=== PATIENT | female | born 1990 | race African-American/Black ===

== ENCOUNTER 2016-04-24 16:46 | Emergency (ER) | payer OTHER ==
[~2016-04-24 16:46] MED LIST: ACET50TA PO; ANUS2.5C2 TOP; COLA100C PO; IBUP-1114 PO; PRE-TAB3 PO; PRENTAB9 PO
[2016-04-24 17:41] LABS: BASO % 0.2 % (0.0-1.0); EOS # 0.1 K/mm3 (0.0-0.50); EOS % 1.2 % (0.0-3.0); LARGE UNSTAINED CELL # 0.1 K/mm3 (0.0-0.4); LARGE UNSTAINED CELL % 0.8 % (0.0-4.0); LYMPH # 1.8 K/mm3 (1.5-6.5); LYMPH % 18.2 % (24.0-44.0); MEAN CORPUSCULAR HEMOGLOBIN 29.3 pg (27.0-33.0); MEAN CORPUSCULAR HGB CONC 32.5 g/dl (32.0-36.5); MEAN CORPUSCULAR VOLUME 90.2 fl (80.0-96.0); MONO # 0.3 K/mm3 (0.0-0.8); MONO % 2.9 % (0.0-5.0); NEUTROPHILS # 7.7 K/mm3 (1.8-7.7); NEUTROPHILS % 76.7 % (36.0-66.0); PLATELET COUNT, AUTOMATED 160 k/mm3 (150-450); RED CELL DISTRIBUTION WIDTH 12.7 % (11.5-14.5)
--- NOTE | 2016-04-24 18:10 | REPUSA ---
Clinical history: hematuria. Findings: The urinary bladder appears unremarkable, but is contracted. No urinary bladder masses are seen. The right kidney measures 10.3 x 4.7 x 4.2 cm. The left kidney measures 9.6 x 5.2 x 6.0 cm. The kidneys demonstrate normal echotexture and echogenicity. There is no evidence of hydronephrosis or n ephrolithiasis. No renal masses are seen. No free fluid is appreciated. Impression: Unremarkable ultrasound examination of the kidneys.
[2016-04-24] MEDS ORDERED: CIPROFLOXACIN 500 MG TAB As Ordered ONE (18:45)
--- NOTE | 2016-04-24 18:51 | EDDOCDS ---
Physician Documentation [facility] Name: Karen Peña Age: 25 yrs Sex: Female : 1990 Arrival Date: 04/24/2016 Time: 16:46 Bed PR Private MD: Jose [facility] [place]; Unknown Pcp Disposition: 04/24/16 18:39 Discharged to Home/Self Care. Impression: Acute cystitis. - Condition is Stable. - Prescriptions for Pyridium 200 mg Oral Tablet - take 1 tablet by ORAL route every 8 hours for 3 days; 9 tablet. Cipro 500 mg Oral Tablet - take 1 tablet by ORAL route every 12 hours; 10 tablet. - Medication Reconciliation, Local Pharmacy Hours form. - Follow up: Emergency Department; When: As soon as possible; Reason: Worsening of conditions. Follow up: Private Physician; When: 2 - 3 days; Reason: Recheck today's complaints. - Problem is new. - Symptoms are unchanged. Historical: - Allergies: no known allergies; - Home Meds: 1. none - PMHx: none; - PSHx: none; - Social history: Smoking status: Patient states was never smoker of tobacco. No barriers to communication noted, The patient speaks fluent Bulgarian, Speaks appropriately for age. - Family history: Not pertinent. - : The pt / caregiver states he / she is not on anticoagulants. Home medication list is obtained from the patient. - Exposure Risk Screening:: None identified. 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 11 in. (180.34 cm) (R); Pain 3/10; 18:48 BP 112 / 74; Pulse 72; Resp 16; Temp 98.3(O); Pulse Ox 100% on R/A; Pain 0/10; sew 16:47 Body Mass Index 26.36 (85.73 kg, 180.34 cm) rs6 MDM: 16:52 UCG by Nursing ordered. srm 16:53 UA Ordered. EDMS 16:53 Urine Culture Ordered. EDMS 16:58 CBC with Diff Ordered. EDMS 17:03 Financial registration complete. [email or web address] 17:03 [facility] Payment Agreement was scanned into [employer] and attached to record. ks16 17:04 US Renal Ordered. EDMS 17:19 UA Reviewed. jk8 18:21 CBC with Diff Reviewed. jk8 18:41 Ciprofloxacin 500 mg PO once ordered. jk8 Administered Medications: 18:49 Drug: Ciprofloxacin 500 mg [ciprofloxacin 500 mg tablet (1 tabs)] Route: PO; srm Signatures: Dispatcher [employer] EDMS Claudine Granger, RN RN srm Lucretia Joshua RN RN kr3 Edson Macedo, PAJonathan PA-Wiliam jk8 Tanya Sage, Reg Reg ks16 The chart was reviewed and I authenticate all verbal orders and agree with the evaluation and treatment provided.Corrections: (The following items were deleted from the chart) 17:05 16:58 RENAL US+US ordered. EDMS EDMS 17:19 17:19 APPEARANCE, URINE CLOUDY; PROTEIN, URINE AUTO 2+; LEUKOCYTE ESTERASE, URINE AUTO jk8 3+; BLOOD, URINE BLOOD 2+; WBC, URINE AUTO TNTC; BACTERIA, URINE AUTO 1+; NITRITE, URINE AUTO POSITIVE. jk8 Attachments: 17:03 [facility] [place] [facility] [place] [email or web address] MTDD
--- NOTE | 2016-04-24 18:51 | EDDOCDS ---
Nurse's Notes [facility] Name: Karen Peña Age: 25 yrs Sex: Female : 1990 Arrival Date: 04/24/2016 Time: 16:46 Bed PR2 / Private MD: Jose Wiliam; Unknown Pcp Diagnosis: Acute cystitis Presentation: 04/24 16:49 Presenting complaint: Patient states: blood in urine and pain in my side. lower. blood srm in urine for 3 days. pain started today. Adult Sepsis Screening: The patient does not have new or worsening altered mentation. Patient's respiratory rate is less than 22. Systolic blood pressure is greater than 100. Patient has a qSOFA score of 0- Negative Sepsis Screen. Suicide/Homicide risk assessment- the patient denies having any suicidal and/or homicidal ideations and does not present with any other emotional, behavioral or mental health complaints. Status: The patient is an active duty nutrition services worker. Transition of care: patient was not received from another setting of care. 16:49 Acuity: SCOTTY Level 4 srm 16:49 Method Of Arrival: Walkin/Carried/Asstd srm Triage Assessment: 16:50 General: Appears in no apparent distress, Behavior is appropriate for age, cooperative. srm Pain: Pain currently is 3 out of 10 on a pain scale. HIV screening NA for this visit Offered previously. 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 none - PMHx: none; - PSHx: none; - Social history: Smoking status: Patient states was never smoker of tobacco. No barriers to communication noted, The patient speaks fluent Kyrgyz, Speaks appropriately for age. - Family history: Not pertinent. - : The pt / caregiver states he / she is not on anticoagulants. Home medication list is obtained from the patient. - Exposure Risk Screening:: None identified. Screenin:27 Screening information is obtained from the patient. Fall risk: No risks identified. kr3 Assistance ADL's: requires no assistance with activities of daily living. Abuse/DV Screen: The patient / caregiver reports he/she is: not in a situation that causes fear, pain or injury. Nutritional screening: No deficits noted. Advance Directives: Currently, there is no health care proxy. home support is adequate. Assessment: 17:26 Reassessment: Patient appears in no apparent distress at this time. Neurological: No kr3 deficits noted. Respiratory: Respiratory effort is even, unlabored. Derm: Skin is normal. 18:49 Reassessment: Patient appears in no apparent distress at this time. General: Appears in srm no apparent distress, Behavior is appropriate for age, cooperative. Neurological: No deficits noted. EENT: No deficits noted. Cardiovascular: No deficits noted. GI: No deficits noted. : Reports hematuria. Vital Signs: 16:47 BP 121 / 68 RA Sitting (auto/lg); Pulse 76; Resp 18; Temp 99.3(O); Pulse Ox 99% on R/A; rs6 Weight 85.73 kg (R); Height 5 ft. 11 in. (180.34 cm) (R); Pain 3/10; 18:48 BP 112 / 74; Pulse 72; Resp 16; Temp 98.3(O); Pulse Ox 100% on R/A; Pain 0/10; sew 16:47 Body Mass Index 26.36 (85.73 kg, 180.34 cm) rs Vitals: 16:47 Log In Time: April 24, 2016 at 16:47. rs6 ED Course: 16:47 Patient visited by Scarlet Estrada PCA. rs6 16:47 Jose [facility] [place] Private Physician. rs6 16:47 Unknown Pcp is Private Physician. rs6 16:47 Patient moved to Waiting rs6 16:48 Patient visited by Scarlet Estrada PCA. rs6 16:48 Patient moved to Pre RCE rs6 16:50 Triage Initiated srm 16:51 Patient moved to Triage 2 srm 16:54 Patient visited by Edson Macedo PA-C. jk8 16:56 Edson Macedo PA-C is PHCP. jk8 16:56 Johana Levine MD is Attending Physician. jk8 16:56 Patient visited by Edson Macedo PA-C. jk8 16:56 Urine Culture Sent. srm 16:56 UA Sent. srm 17:03 [facility] Payment Agreement was scanned into [employer] and attached to record. ks16 17:08 Patient moved to Ultrasound am17 17:09 Patient moved to PD2 / 27 kr3 17:09 Patient moved to Ultrasound kr3 17:17 Patient moved to PD2 am17 17:26 Patient moved to TR2 kr3 17:26 CBC with Diff Sent. kr3 17:27 The patient / caregiver is instructed regarding the plan of care and ED course. Patient jenny3 has correct armband on for positive identification. 18:13 Patient visited by Lucretia Joshua RN. kr3 18:40 US Renal Returned. EDMS 18:44 Patient moved to PR kr3 18:48 Patient visited by Johana Batres. sew 18:49 No IV's were initiated during this patient's visit. No procedures done that require srm assistance. 18:50 Patient visited by Claudine Granger, EBENEZER. srm Administered Medications: 18:49 Drug: Ciprofloxacin 500 mg [ciprofloxacin 500 mg tablet (1 tabs)] Route: PO; srm Order Results: Lab Order: UA; SPEC'M 04/24/16 16:54 Test: APPEARANCE, URINE; Value: CLOUDY; Range: CLEAR; Abnormal: Above high normal; Status: F Test: COLOR, URINE; Value: YELLOW; Range: YELLOW; Status: F Test: PH,URINE; Value: 5.0; Range: 5.0-9.0; Units: UNITS; Status: F Test: SPECIFIC GRAVITY URINE AUTO; Value: 1.021; Range: 1.002-1.035; Status: F Test: PROTEIN, URINE AUTO; Value: 2+; Range: NEGATIVE; Abnormal: Above high normal; Units: mg/dL; Status: F Test: GLUCOSE, URINE (UA) AUTO; Value: NEGATIVE; Range: NEGATIVE; Units: mg/dL; Status: F Test: KETONE, URINE AUTO; Value: NEGATIVE; Range: NEGATIVE; Units: mg/dL; Status: F Test: UROBILINOGEN, URINE AUTO; Value: 0.2; Range: 0.0-2.0; Units: mg/dL; Status: F Test: BILIRUBIN, URINE AUTO; Value: NEGATIVE; Range: NEGATIVE; Status: F Test: NITRITE, URINE AUTO; Value: POSITIVE; Range: NEGATIVE; Status: F Test: LEUKOCYTE ESTERASE, URINE AUTO; Value: 3+; Range: NEGATIVE; Abnormal: Above high normal; Status: F Test: BLOOD, URINE BLOOD; Value: 2+; Range: NEGATIVE; Abnormal: Above high normal; Status: F Test: WBC, URINE AUTO; Value: TNTC; Range: 0-3; Abnormal: Above high normal; Units: /HPF; Status: F Test: RBC, URINE AUTO; Value: 0; Range: 0-3; Units: /HPF; Status: F Test: BACTERIA, URINE AUTO; Value: 1+; Range: NEGATIVE; Abnormal: Above high normal; Status: F Test: SQUAMOUS EPITHELIAL CELL UR AU; Value: 0; Range: 0-6; Units: /HPF; Status: F Test: TRANSITIONAL EPITHELIAL AUTO; Value: 1; Range: NONE; Units: /HPF; Status: F Test: MUCUS, URINE; Value: SMALL; Range: NEGATIVE; Status: F Test: HYALINE CAST, URINE AUTO; Value: 0; Range: 0-1; Units: /LPF; Status: F Lab Order: CBC with Diff; SPEC'M 04/24/16 17:24 Test: WHITE BLOOD COUNT; Value: 10.0; Range: 4.0-10.0; Units: K/mm3; Status: F Test: RED BLOOD COUNT; Value: 4.44; Range: 4.00-5.40; Units: M/mm3; Status: F Test: HEMOGLOBIN; Value: 13.0; Range: 12.0-16.0; Units: g/dl; Status: F Test: HEMATOCRIT; Value: 40.0; Range: 36.0-47.0; Units: %; Status: F Test: MEAN CORPUSCULAR VOLUME; Value: 90.2; Range: 80.0-96.0; Units: fl; Status: F Test: MEAN CORPUSCULAR HEMOGLOBIN; Value: 29.3; Range: 27.0-33.0; Units: pg; Status: F Test: MEAN CORPUSCULAR HGB CONC; Value: 32.5; Range: 32.0-36.5; Units: g/dl; Status: F Test: RED CELL DISTRIBUTION WIDTH; Value: 12.7; Range: 11.5-14.5; Units: %; Status: F Test: PLATELET COUNT, AUTOMATED; Value: 160; Range: 150-450; Units: k/mm3; Status: F Test: NEUTROPHILS %; Value: 76.7; Range: 36.0-66.0; Abnormal: Above high normal; Units: %; Status: F Test: LYMPH %; Value: 18.2; Range: 24.0-44.0; Abnormal: Below low normal; Units: %; Status: F Test: MONO %; Value: 2.9; Range: 0.0-5.0; Units: %; Status: F Test: EOS %; Value: 1.2; Range: 0.0-3.0; Units: %; Status: F Test: BASO %; Value: 0.2; Range: 0.0-1.0; Units: %; Status: F Test: LARGE UNSTAINED CELL %; Value: 0.8; Range: 0.0-4.0; Units: %; Status: F Test: NEUTROPHILS #; Value: 7.7; Range: 1.8-7.7; Units: K/mm3; Status: F Test: LYMPH #; Value: 1.8; Range: 1.5-6.5; Units: K/mm3; Status: F Test: MONO #; Value: 0.3; Range: 0.0-0.8; Units: K/mm3; Status: F Test: EOS #; Value: 0.1; Range: 0.0-0.50; Units: K/mm3; Status: F Test: BASO #; Value: 0.0; Range: 0.0-0.2; Units: K/mm3; Status: F Test: LARGE UNSTAINED CELL #; Value: 0.1; Range: 0.0-0.4; Units: K/mm3; Status: F Radiology Order: US Renal Test: US Renal REASON FOR EXAMINATION: rule out hydronephrosis, right flank pain; ; Clinical history: hematuria.; Findings: The urinary bladder appears unremarkable, but is contracted. No urinary bladder masses are; seen. The right kidney measures 10.3 x 4.7 x 4.2 cm. The left kidney measures 9.6 x 5.2 x 6.0 cm. The; kidneys demonstrate normal echotexture and echogenicity. There is no evidence of hydronephrosis or n; ephrolithiasis. No renal masses are seen. No free fluid is appreciated.; Impression: Unremarkable ultrasound examination of the kidneys.; ; Outcome: 17:27 Ultrasound Study completed. kr3 18:39 Discharge ordered by Provider. jk8 18:49 Discharge Assessment: Patient awake, alert and oriented x 3. No cognitive and/or srm functional deficits noted. Patient verbalized understanding of disposition instructions. patient administered narcotics - no. The following High Risk Discharge criteria are identified: None. Discharged to home ambulatory. Condition: good Condition: stable. Discharge instructions given to patient, Instructed on discharge instructions, follow up and referral plans. medication usage, diet, Demonstrated understanding of instructions, medications, Pt was receptive of discharge instructions/ teaching. Prescriptions given X 1. Property sent home with patient. 18:51 Patient left the ED. srm Signatures: Dispatcher [employer] EDMS Claudine Granger RN RN srm Lucretia Joshua RN RN kr3 Johana Batres Ashley am17 Schmitt, Rebecca, CARPET CUTTER CARPET CUTTER rs6 Edson Macedo PA-C PA-Wiliam jkTanya Nunez, Reg Reg ks16 MTDD
--- NOTE | 2016-04-26 19:51 | EDDOCDS ---
Physician Documentation [facility] Name: Karen Peña Age: 25 yrs Sex: Female : 1990 Arrival Date: 04/24/2016 Time: 16:46 Bed PR Private MD: Jose [facility] [place] Pcp Disposition: 04/24/16 18:39 Discharged to Home/Self Care. Impression: Acute cystitis. - Condition is Stable. - Prescriptions for Pyridium 200 mg Oral Tablet - take 1 tablet by ORAL route every 8 hours for 3 days; 9 tablet. Cipro 500 mg Oral Tablet - take 1 tablet by ORAL route every 12 hours; 10 tablet. - Medication Reconciliation, Local Pharmacy Hours form. - Follow up: Emergency Department; When: As soon as possible; Reason: Worsening of conditions. Follow up: Private Physician; When: 2 - 3 days; Reason: Recheck today's complaints. - Problem is new. - Symptoms are unchanged. Historical: - Allergies: no known allergies; - Home Meds: 1. none - PMHx: none; - PSHx: none; - Social history: Smoking status: Patient states was never smoker of tobacco. No barriers to communication noted, The patient speaks fluent Ecuadorean, Speaks appropriately for age. - Family history: Not pertinent. - : The pt / caregiver states he / she is not on anticoagulants. Home medication list is obtained from the patient. - Exposure Risk Screening:: None identified. 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 11 in. (180.34 cm) (R); Pain 3/10; 18:48 BP 112 / 74; Pulse 72; Resp 16; Temp 98.3(O); Pulse Ox 100% on R/A; Pain 0/10; sew 16:47 Body Mass Index 26.36 (85.73 kg, 180.34 cm) rs6 MDM: 16:52 UCG by Nursing ordered. srm 16:53 UA Ordered. EDMS 16:53 Urine Culture Ordered. EDMS 16:58 CBC with Diff Ordered. EDMS 17:03 Financial registration complete. ks16 17:03 [facility] [place] Payment Agreement was scanned into [employer] and attached to record. ks16 17:04 US Renal Ordered. EDMS 17:19 UA Reviewed. jk8 18:21 CBC with Diff Reviewed. jk8 18:41 Ciprofloxacin 500 mg PO once ordered. jk8 04/25 10:53 T-Sheet-- Draft Copy was scanned into [employer] and attached to record. gb 04/26 14:46 Lab / Xray Callback was scanned into [employer] and attached to record. lbd Administered Medications: 04/24 18:49 Drug: Ciprofloxacin 500 mg [ciprofloxacin 500 mg tablet (1 tabs)] Route: PO; srm Signatures: Dispatcher [employer] EDMS Kay Polk, Advance Agent Unit lbd Claudine Granger RN RN srm Missy Vega, Reg Reg gb Lucretia Joshua RN RN kr3 Edson Macedo, PAJonathan PA-Wiliam jk8 Tanya Sage, Reg Reg ks16 The chart was reviewed and I authenticate all verbal orders and agree with the evaluation and treatment provided.Corrections: (The following items were deleted from the chart) 17:05 16:58 RENAL US+US ordered. EDMS EDMS 17:19 17:19 APPEARANCE, URINE CLOUDY; PROTEIN, URINE AUTO 2+; LEUKOCYTE ESTERASE, URINE AUTO jk8 3+; BLOOD, URINE BLOOD 2+; WBC, URINE AUTO TNTC; BACTERIA, URINE AUTO 1+; NITRITE, URINE AUTO POSITIVE. jk8 Attachments: 17:03 [facility] [place] Payment Agreement [email or web address] 04/25 10:53 T-Sheet-- Draft Copy gb Chart Complete MTDD
--- NOTE | 2016-04-26 19:51 | EDDOCDS ---
Nurse's Notes [facility] Name: Karen Peña Age: 25 yrs Sex: Female : 1990 Arrival Date: 04/24/2016 Time: 16:46 Bed PR2 / Private MD: Jose Wiliam; Unknown Pcp Diagnosis: Acute cystitis Presentation: 04/24 16:49 Presenting complaint: Patient states: blood in urine and pain in my side. lower. blood srm in urine for 3 days. pain started today. Adult Sepsis Screening: The patient does not have new or worsening altered mentation. Patient's respiratory rate is less than 22. Systolic blood pressure is greater than 100. Patient has a qSOFA score of 0- Negative Sepsis Screen. Suicide/Homicide risk assessment- the patient denies having any suicidal and/or homicidal ideations and does not present with any other emotional, behavioral or mental health complaints. Status: The patient is an active duty client services specialist. Transition of care: patient was not received from another setting of care. 16:49 Acuity: SCOTTY Level 4 srm 16:49 Method Of Arrival: Walkin/Carried/Asstd srm Triage Assessment: 16:50 General: Appears in no apparent distress, Behavior is appropriate for age, cooperative. srm Pain: Pain currently is 3 out of 10 on a pain scale. HIV screening NA for this visit Offered previously. CHARGE NURSE: 16:50 2 months post srm Historical: - Allergies: no known allergies; - Home Meds: 1. none - PMHx: none; - PSHx: none; - Social history: Smoking status: Patient states was never smoker of tobacco. No barriers to communication noted, The patient speaks fluent Cook Islander, Speaks appropriately for age. - Family history: Not pertinent. - : The pt / caregiver states he / she is not on anticoagulants. Home medication list is obtained from the patient. - Exposure Risk Screening:: None identified. Screenin:27 Screening information is obtained from the patient. Fall risk: No risks identified. kr3 Assistance ADL's: requires no assistance with activities of daily living. Abuse/DV Screen: The patient / caregiver reports he/she is: not in a situation that causes fear, pain or injury. Nutritional screening: No deficits noted. Advance Directives: Currently, there is no health care proxy. home support is adequate. Assessment: 17:26 Reassessment: Patient appears in no apparent distress at this time. Neurological: No kr3 deficits noted. Respiratory: Respiratory effort is even, unlabored. Derm: Skin is normal. 18:49 Reassessment: Patient appears in no apparent distress at this time. General: Appears in srm no apparent distress, Behavior is appropriate for age, cooperative. Neurological: No deficits noted. EENT: No deficits noted. Cardiovascular: No deficits noted. GI: No deficits noted. : Reports hematuria. Vital Signs: 16:47 BP 121 / 68 RA Sitting (auto/lg); Pulse 76; Resp 18; Temp 99.3(O); Pulse Ox 99% on R/A; rs6 Weight 85.73 kg (R); Height 5 ft. 11 in. (180.34 cm) (R); Pain 3/10; 18:48 BP 112 / 74; Pulse 72; Resp 16; Temp 98.3(O); Pulse Ox 100% on R/A; Pain 0/10; sew 16:47 Body Mass Index 26.36 (85.73 kg, 180.34 cm) rs Vitals: 16:47 Log In Time: April 24, 2016 at 16:47. rs6 ED Course: 16:47 Patient visited by Scarlet Estrada PCA. rs6 16:47 Jose [facility] is Private Physician. rs6 16:47 Unknown Pcp is Private Physician. rs6 16:47 Patient moved to Waiting rs6 16:48 Patient visited by Scarlet Estrada PCA. rs6 16:48 Patient moved to Pre RCE rs6 16:50 Triage Initiated srm 16:51 Patient moved to Triage 2 srm 16:54 Patient visited by Edson Macedo PA-C. jk8 16:56 Edson Macedo PA-C is PHCP. jk8 16:56 Johana Levine MD is Attending Physician. jk8 16:56 Patient visited by Edson Macedo PA-C. jk8 16:56 Urine Culture Sent. srm 16:56 UA Sent. srm 17:03 [facility] Payment Agreement was scanned into [employer] and attached to record. ks16 17:08 Patient moved to Ultrasound am17 17:09 Patient moved to PD2 / 27 kr3 17:09 Patient moved to Ultrasound kr3 17:17 Patient moved to PD2 am17 17:26 Patient moved to TR2 kr3 17:26 CBC with Diff Sent. kr3 17:27 The patient / caregiver is instructed regarding the plan of care and ED course. Patient quique has correct armband on for positive identification. 18:13 Patient visited by Lucretia Joshua RN. kr3 18:40 US Renal Returned. EDMS 18:44 Patient moved to PR kr3 18:48 Patient visited by Johana Batres. sew 18:49 No IV's were initiated during this patient's visit. No procedures done that require srm assistance. 18:50 Patient visited by Claudine Granger RN. srm 04/25 10:53 T-Sheet-- Draft Copy was scanned into [employer] and attached to record. gb 04/26 14:46 Lab / Xray Callback was scanned into [employer] and attached to record. lbd Administered Medications: 04/24 18:49 Drug: Ciprofloxacin 500 mg [ciprofloxacin 500 mg tablet (1 tabs)] Route: PO; srm Order Results: Lab Order: UA; SPEC'M 04/24/16 16:54 Test: APPEARANCE, URINE; Value: CLOUDY; Range: CLEAR; Abnormal: Above high normal; Status: F Test: COLOR, URINE; Value: YELLOW; Range: YELLOW; Status: F Test: PH,URINE; Value: 5.0; Range: 5.0-9.0; Units: UNITS; Status: F Test: SPECIFIC GRAVITY URINE AUTO; Value: 1.021; Range: 1.002-1.035; Status: F Test: PROTEIN, URINE AUTO; Value: 2+; Range: NEGATIVE; Abnormal: Above high normal; Units: mg/dL; Status: F Test: GLUCOSE, URINE (UA) AUTO; Value: NEGATIVE; Range: NEGATIVE; Units: mg/dL; Status: F Test: KETONE, URINE AUTO; Value: NEGATIVE; Range: NEGATIVE; Units: mg/dL; Status: F Test: UROBILINOGEN, URINE AUTO; Value: 0.2; Range: 0.0-2.0; Units: mg/dL; Status: F Test: BILIRUBIN, URINE AUTO; Value: NEGATIVE; Range: NEGATIVE; Status: F Test: NITRITE, URINE AUTO; Value: POSITIVE; Range: NEGATIVE; Status: F Test: LEUKOCYTE ESTERASE, URINE AUTO; Value: 3+; Range: NEGATIVE; Abnormal: Above high normal; Status: F Test: BLOOD, URINE BLOOD; Value: 2+; Range: NEGATIVE; Abnormal: Above high normal; Status: F Test: WBC, URINE AUTO; Value: TNTC; Range: 0-3; Abnormal: Above high normal; Units: /HPF; Status: F Test: RBC, URINE AUTO; Value: 0; Range: 0-3; Units: /HPF; Status: F Test: BACTERIA, URINE AUTO; Value: 1+; Range: NEGATIVE; Abnormal: Above high normal; Status: F Test: SQUAMOUS EPITHELIAL CELL UR AU; Value: 0; Range: 0-6; Units: /HPF; Status: F Test: TRANSITIONAL EPITHELIAL AUTO; Value: 1; Range: NONE; Units: /HPF; Status: F Test: MUCUS, URINE; Value: SMALL; Range: NEGATIVE; Status: F Test: HYALINE CAST, URINE AUTO; Value: 0; Range: 0-1; Units: /LPF; Status: F Lab Order: Urine Culture; SPEC'M 04/24/16 16:54 Test: URINE CULTURE; Value: <EXTERNAL COMMENT eCWMed> FULL REPORT IN LAB NOTES (eCW and Medent).; Status: F Test: URINE CULTURE; Value: ORGANISM 1: ESCHERICHIA COLI; Status: F Test: URINE CULTURE; Value: ESCHERICHIA COLI; Status: F Test: URINE CULTURE; Value: COLONY COUNT CFU/ml >100,000; Status: F Test: URINE CULTURE; Value: GRAM NEG SENSI - VITEK 80; Status: F Test: URINE CULTURE; Value: Method: VIT2; Status: F Test: URINE CULTURE; Value: EXTD BRD SPCTRM BETA LACTAMASE -; Status: F Test: URINE CULTURE; Value: TRIMETHOPRIM/SULFAMETHOXAZOLE <=20 S; Status: F Test: URINE CULTURE; Value: AMPICILLIN 8 S; Status: F Test: URINE CULTURE; Value: GENTAMICIN <=1 S; Status: F Test: URINE CULTURE; Value: NITROFURANTOIN <=16 S; Status: F Test: URINE CULTURE; Value: CEFAZOLIN <=4 S; Status: F Test: URINE CULTURE; Value: LEVOFLOXACIN <=0.12 S; Status: F Test: URINE CULTURE; Value: TOBRAMYCIN <=1 S; Status: F Test: URINE CULTURE; Value: CEFTRIAXONE <=1 S; Status: F Test: URINE CULTURE; Value: CEFTAZIDIME <=1 S; Status: F Test: URINE CULTURE; Value: AMPICILLIN/SULBACTAM 4 S; Status: F Test: URINE CULTURE; Value: PIPERACILLIN/TAZOBACTAM <=4 S; Status: F Test: URINE CULTURE; Value: AZTREONAM <=1 S; Status: F Test: URINE CULTURE; Value: ERTAPENEM <=0.5 S; Status: F Test: URINE CULTURE; Value: MEROPENEM <=0.25 S; Status: F Test: URINE CULTURE; Value: TIGECYCLINE <=0.5 S; Status: F Test: URINE CULTURE; Value: CEFEPIME <=1 S; Status: F Lab Order: CBC with Diff; SPEC'M 04/24/16 17:24 Test: WHITE BLOOD COUNT; Value: 10.0; Range: 4.0-10.0; Units: K/mm3; Status: F Test: RED BLOOD COUNT; Value: 4.44; Range: 4.00-5.40; Units: M/mm3; Status: F Test: HEMOGLOBIN; Value: 13.0; Range: 12.0-16.0; Units: g/dl; Status: F Test: HEMATOCRIT; Value: 40.0; Range: 36.0-47.0; Units: %; Status: F Test: MEAN CORPUSCULAR VOLUME; Value: 90.2; Range: 80.0-96.0; Units: fl; Status: F Test: MEAN CORPUSCULAR HEMOGLOBIN; Value: 29.3; Range: 27.0-33.0; Units: pg; Status: F Test: MEAN CORPUSCULAR HGB CONC; Value: 32.5; Range: 32.0-36.5; Units: g/dl; Status: F Test: RED CELL DISTRIBUTION WIDTH; Value: 12.7; Range: 11.5-14.5; Units: %; Status: F Test: PLATELET COUNT, AUTOMATED; Value: 160; Range: 150-450; Units: k/mm3; Status: F Test: NEUTROPHILS %; Value: 76.7; Range: 36.0-66.0; Abnormal: Above high normal; Units: %; Status: F Test: LYMPH %; Value: 18.2; Range: 24.0-44.0; Abnormal: Below low normal; Units: %; Status: F Test: MONO %; Value: 2.9; Range: 0.0-5.0; Units: %; Status: F Test: EOS %; Value: 1.2; Range: 0.0-3.0; Units: %; Status: F Test: BASO %; Value: 0.2; Range: 0.0-1.0; Units: %; Status: F Test: LARGE UNSTAINED CELL %; Value: 0.8; Range: 0.0-4.0; Units: %; Status: F Test: NEUTROPHILS #; Value: 7.7; Range: 1.8-7.7; Units: K/mm3; Status: F Test: LYMPH #; Value: 1.8; Range: 1.5-6.5; Units: K/mm3; Status: F Test: MONO #; Value: 0.3; Range: 0.0-0.8; Units: K/mm3; Status: F Test: EOS #; Value: 0.1; Range: 0.0-0.50; Units: K/mm3; Status: F Test: BASO #; Value: 0.0; Range: 0.0-0.2; Units: K/mm3; Status: F Test: LARGE UNSTAINED CELL #; Value: 0.1; Range: 0.0-0.4; Units: K/mm3; Status: F Radiology Order: US Renal Test: US Renal REASON FOR EXAMINATION: rule out hydronephrosis, right flank pain; ; Clinical history: hematuria.; Findings: The urinary bladder appears unremarkable, but is contracted. No urinary bladder masses are; seen. The right kidney measures 10.3 x 4.7 x 4.2 cm. The left kidney measures 9.6 x 5.2 x 6.0 cm. The; kidneys demonstrate normal echotexture and echogenicity. There is no evidence of hydronephrosis or n; ephrolithiasis. No renal masses are seen. No free fluid is appreciated.; Impression: Unremarkable ultrasound examination of the kidneys.; ; Outcome: 17:27 Ultrasound Study completed. kr3 18:39 Discharge ordered by Provider. jk8 18:49 Discharge Assessment: Patient awake, alert and oriented x 3. No cognitive and/or srm functional deficits noted. Patient verbalized understanding of disposition instructions. patient administered narcotics - no. The following High Risk Discharge criteria are identified: None. Discharged to home ambulatory. Condition: good Condition: stable. Discharge instructions given to patient, Instructed on discharge instructions, follow up and referral plans. medication usage, diet, Demonstrated understanding of instructions, medications, Pt was receptive of discharge instructions/ teaching. Prescriptions given X 1. Property sent home with patient. 18:51 Patient left the ED. [facility] 04/26 14:26 Lab/X-ray follow up: Urine culture results reviewed with Dr. Cook and no change in kcs treatment needed. Signatures: Dispatcher [employer] EDMS Carmela Arechiga, RN RN [facility] Kay Polk, Jig Boring Machine Operator For Metal Unit lbd Claudine Granger RN RN [facility] Missy Vega, Reg Reg gb Lucretia Joshua,EBENEZER RN kr3 Johana Batres Ashley am17 Scarlet Estrada, DESKTOP SUPPORT TECHNICIAN DESKTOP SUPPORT TECHNICIAN rs6 Edson Macedo PA-C PA-C jk8 Sorenson, Kimberly, Reg Reg ks16 Chart Complete MTDD
--- NOTE | 2016-04-26 19:51 | EDDOCDS ---
Physician Documentation [facility] Name: Karen Peña Age: 25 yrs Sex: Female : 1990 Arrival Date: 04/24/2016 Time: 16:46 Bed PR Private MD: Jose [facility]; Unknown Pcp Disposition: 04/24/16 18:39 Discharged to Home/Self Care. Impression: Acute cystitis. - Condition is Stable. - Prescriptions for Pyridium 200 mg Oral Tablet - take 1 tablet by ORAL route every 8 hours for 3 days; 9 tablet. Cipro 500 mg Oral Tablet - take 1 tablet by ORAL route every 12 hours; 10 tablet. - Medication Reconciliation, Local Pharmacy Hours form. - Follow up: Emergency Department; When: As soon as possible; Reason: Worsening of conditions. Follow up: Private Physician; When: 2 - 3 days; Reason: Recheck today's complaints. - Problem is new. - Symptoms are unchanged. Historical: - Allergies: no known allergies; - Home Meds: 1. none - PMHx: none; - PSHx: none; - Social history: Smoking status: Patient states was never smoker of tobacco. No barriers to communication noted, The patient speaks fluent Bulgarian, Speaks appropriately for age. - Family history: Not pertinent. - : The pt / caregiver states he / she is not on anticoagulants. Home medication list is obtained from the patient. - Exposure Risk Screening:: None identified. 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 11 in. (180.34 cm) (R); Pain 3/10; 18:48 BP 112 / 74; Pulse 72; Resp 16; Temp 98.3(O); Pulse Ox 100% on R/A; Pain 0/10; sew 16:47 Body Mass Index 26.36 (85.73 kg, 180.34 cm) rs6 MDM: 16:52 UCG by Nursing ordered. srm 16:53 UA Ordered. EDMS 16:53 Urine Culture Ordered. EDMS 16:58 CBC with Diff Ordered. EDMS 17:03 Financial registration complete. ks16 17:03 [facility] Payment Agreement was scanned into [employer] and attached to record. ks16 17:04 US Renal Ordered. EDMS 17:19 UA Reviewed. jk8 18:21 CBC with Diff Reviewed. jk8 18:41 Ciprofloxacin 500 mg PO once ordered. jk8 04/25 10:53 T-Sheet-- Draft Copy was scanned into [employer] and attached to record. gb 04/26 14:46 Lab / Xray Callback was scanned into [employer] and attached to record. lbd Administered Medications: 04/24 18:49 Drug: Ciprofloxacin 500 mg [ciprofloxacin 500 mg tablet (1 tabs)] Route: PO; srm Signatures: Dispatcher [employer] EDMS Kay Polk, Seo Expert Unit lbd Claudine Granger RN RN srm Missy Vega, Reg Reg gb Lucretia Joshua RN RN kr3 Edson Macedo, PAJonathan PA-Wiliam jk8 Tanya Sage, Reg Reg ks16 The chart was reviewed and I authenticate all verbal orders and agree with the evaluation and treatment provided.Corrections: (The following items were deleted from the chart) 17:05 16:58 RENAL US+US ordered. EDMS EDMS 17:19 17:19 APPEARANCE, URINE CLOUDY; PROTEIN, URINE AUTO 2+; LEUKOCYTE ESTERASE, URINE AUTO jk8 3+; BLOOD, URINE BLOOD 2+; WBC, URINE AUTO TNTC; BACTERIA, URINE AUTO 1+; NITRITE, URINE AUTO POSITIVE. jk8 Attachments: 17:03 [facility] Payment Agreement ks16 04/25 10:53 T-Sheet-- Draft Copy gb Chart Complete MTDD
== END 2016-04-24 18:51 | disposition home or self-care (01) ==
LOC: M ED 16:46
DX: N30.00 Acute cystitis without hematuria (principal)